=== PATIENT | female | born 2000 | race African-American/Black ===

== ENCOUNTER 2022-08-17 13:45 | Emergency (ER) | payer OTHER ==
[2022-08-17 14:19] LABS: Specific Gravity 1.013 (1.005-1.030)
[2022-08-17 14:23] LABS: Specific Gravity 1.013 (1.005-1.030); Transitional Epithelial <5 /HPF (None Seen); Urine Bacteria <20 /HPF (<20); Urine Bilirubin NEGATIVE (Negative); Urine Blood Trace (Negative); Urine Clarity Extremely Turbid (Clear); Urine Color Colorless (Yellow); Urine Glucose NEGATIVE (Negative); Urine Protein TRACE (Negative); Urine Urobilinogen Normal (Normal); Urine WBC Clump Occasional /HPF (None Seen)
[2022-08-17 14:57] LABS: BUN Blood Urea Nitrogen 9 mg/dL (7-18); Bicarbonate 22 mEq/L (21-32); Glomerular Filtration Rate 106 ml/min (=/>90); Glucose Level 101 mg/dL (74-106); Potassium 3.6 mEq/L (3.5-5.1); Sodium Level 139 mEq/L (136-145)
[2022-08-17 15:01] LABS: Troponin High Sensitivity < 3.0 pg/mL (<58.9)
--- NOTE | 2022-08-17 15:13 | RAD REPORT ---
EXAM DESCRIPTION: RAD - Chest Single View - 08/17/2022 2:22 pm CLINICAL HISTORY: CHEST PAIN Chest pain. COMPARISON: No comparisons FINDINGS: Portable technique limits examination quality. The lungs are grossly clear. The heart is normal in size. No displaced fractures. IMPRESSION: No acute intrathoracic process suspected.
[2022-08-17 15:29] LABS: Absolute Lymphocytes (CBC) 1.9 K/uL (0.7-4.9); Hematocrit 30.1 % (36.0-45.0); Lymphocytes % 20.4 % (15.3-44.8); MCV 62.8 fL (80-100); MPV 8.6 fL (7.6-11.3)
[2022-08-17 15:35] LABS: White Blood Cell Scan OK (OK)
[2022-08-17 15:36] LABS: Blood Morphology Comment NOTED (NOT SEEN); Hypochromasia 2+; Platelet Estimate ADEQ
--- NOTE | 2022-08-17 15:38 | RAD REPORT ---
EXAM DESCRIPTION: US - Extremity Nonvascular Limited - 08/17/2022 2:17 pm CLINICAL HISTORY: swelling, evaluate for abscess, breast;Pain COMPARISON: <Comparisons> TECHNIQUE: Real-time sonographic evaluation of the area of interest was performed. FINDINGS: No soft tissue mass or fluid collection visualized. IMPRESSION: Negative study.
--- NOTE | 2022-08-17 15:44 | ER ---
Nurse's Notes [facility] Name: Howard Rodriguez Age: 22 yrs Sex: Female : 2000 Arrival Date: 08/17/2022 Time: 13:45 Bed 8 Private MD: Diagnosis: UTI/ Urinary tract infection, site not specified;Chest pain, unspecified-right Presentation: 08/17 13:55 Chief complaint: Patient states: Right sided chest pain - worse with movement X 2 ld1 weeks. Urinary frequency 2-3 days. Coronavirus screen: At this time, the client does not indicate any symptoms associated with coronavirus-19. Ebola Screen: No symptoms or risks identified at this time. Initial Sepsis Screen: Does the patient meet any 2 criteria? No. Patient's initial sepsis screen is negative. Does the patient have a suspected source of infection? No. Patient's initial sepsis screen is negative. Risk Assessment: Do you want to hurt yourself or someone else? Patient reports no desire to harm self or others. Onset of symptoms was August 17, 2022. 13:55 Method Of Arrival: Ambulatory ld1 13:55 Acuity: LONNY 3 ld1 Triage Assessment: 13:55 General: Appears in no apparent distress. comfortable, Behavior is cooperative, ld1 anxious, crying. Pain: Complains of pain in chest Pain does not radiate. Pain currently is 7 out of 10 on a pain scale. Quality of pain is described as throbbing. EENT: No signs and/or symptoms were reported regarding the EENT system. Neuro: Level of Consciousness is awake, alert, obeys commands, Oriented to person, place, time, situation. Cardiovascular: Capillary refill < 3 seconds Patient's skin is warm and dry. Rhythm is sinus rhythm. Respiratory: Airway is patent Respiratory effort is even, unlabored. GI: Abdomen is round non-distended. : Reports urinary frequency. Derm: No signs and/or symptoms reported regarding the dermatologic system. Musculoskeletal: No signs and/or symptoms reported regarding the musculoskeletal system. Historical: - Allergies: 13:55 No Known Allergies; ld1 - Home Meds: 13:55 None [Active]; ld1 - PMHx: 13:55 None; ld1 - PSHx: 13:55 DNC; ld1 - Immunization history:: Adult Immunizations up to date, Client reports receiving the 2nd dose of the Covid vaccine. - Social history:: Smoking status: Patient denies any tobacco usage or history of. Patient/guardian denies using alcohol. Screenin:00 [facility] ED Fall Risk Assessment (Adult) History of falling in the last 3 months, ko1 including since admission No falls in past 3 months (0 pts) Confusion or Disorientation No (0 pts) Intoxicated or Sedated No (0 pts) Impaired Gait No (0 pts) Mobility Assist Device Used No (0 pt) Altered Elimination No (0 pt) Score/Fall Risk Level 0 - 2 = Low Risk Oriented to surroundings, Maintained a safe environment, Educated pt \T\ family on fall prevention, incl call for assistance when getting out of bed, Assessed \T\ reinforced patient's understanding of fall precautions, Provided non-skid footwear, Hourly rounding (assess needs \T\ fall precautionary measures) done, Used ambulatory aids as needed (educated on \T\ assisted with), Used gait belt as appropriate. Abuse screen: Denies threats or abuse. Denies injuries from another. Nutritional screening: No deficits noted. Tuberculosis screening: No symptoms or risk factors identified. Assessment: 14:00 Pain: Complains of pain in chest Pain does not radiate. Pain currently is 7 out of 10 ko1 on a pain scale. Quality of pain is described as aching, Pain began gradually. Neuro: No deficits noted. Cardiovascular: Chest pain is located in right anterior. 14:00 Respiratory: No deficits noted. GI: No deficits noted. : Reports burning with ko1 urination, urgency, urinary frequency. EENT: No deficits noted. Derm: No deficits noted. Musculoskeletal: No deficits noted. Vital Signs: 13:55 BP 145 / 86; Pulse 102; Resp 18; Temp 98.5(TE); Pulse Ox 97% on R/A; Weight 58.97 kg; ld1 Height 5 ft. 2 in. ; Pain 7/10; 15:29 BP 134 / 76; Pulse 92; Resp 16; Pulse Ox 99% on R/A; ko1 13:55 Body Mass Index 23.78 (58.97 kg, 157.48 cm) ld1 13:55 Pain Scale: Adult ld1 ED Course: 13:48 Patient arrived in ED. im 13:48 Tiana Cam FNP-C is [facility]. kb 13:48 Tk Oliver MD is Attending Physician. kb 13:55 Arm band placed on right wrist. ld1 13:56 Jam Rivera, RN is Primary Nurse. bp 13:56 Triage completed. ld1 14:00 Patient has correct armband on for positive identification. Placed in gown. Bed in low ko1 position. Call light in reach. Side rails up X 1. Client placed on continuous cardiac and pulse oximetry monitoring. NIBP monitoring applied. monitoring tech on. Door closed. Noise minimized. Lights dimmed. Warm blanket given. 14:00 Patient maintains SpO2 saturation greater than 95% on room air. ko1 14:11 Test, Urine Sent. ko1 14:11 Urinalysis w/ reflexes Sent. ko1 14:19 US Extrmty Nonvasular Limited In Process Unspecified. EDMS 14:20 Inserted saline lock: 22 gauge in right antecubital area, using aseptic technique. ko1 Blood collected. 14:24 XRAY Chest (1 view) In Process Unspecified. EDMS 14:55 No provider procedures requiring assistance completed. ko1 15:46 IV discontinued, intact, bleeding controlled, No redness/swelling at site. Pressure ko1 dressing applied. Administered Medications: No medications were administered Medication: 14:54 VIS not applicable for this client. ko1 Outcome: 15:44 Discharge ordered by . kb 15:57 Discharged to home ambulatory. ko1 15:57 Condition: stable 15:57 Discharge instructions given to patient, Instructed on discharge instructions, follow up and referral plans. medication usage, Demonstrated understanding of instructions, follow-up care, medications. 15:58 Patient left the ED. ko1 Signatures: Dispatcher [employer] EDMS Tiana Cam FNP-C FNP-Jam Banerjee, RN RN Nidia Parekr RN RN ld1 Janina Quigley, RN RN ko1 Carisa Crisostomo
--- NOTE | 2022-08-17 15:44 | EDPHYS ---
Physician Documentation [facility] Name: Howard Rodriguez Age: 22 yrs Sex: Female : 2000 Arrival Date: 08/17/2022 Time: 13:45 Bed 8 Private MD: ED Physician Tk Oliver HPI: 08/17 15:40 This 22 yrs old Female presents to ER via Ambulatory with complaints of Chest Pain, kb Bladder issues. 15:41 The patient presents with urinary symptoms, frequency. Onset: The symptoms/episode kb began/occurred 3 day(s) ago. Modifying factors: The symptoms are alleviated by nothing, the symptoms are aggravated by urinating. Associated signs and symptoms: The patient has no apparent associated signs or symptoms. Severity of symptoms: At their worst the symptoms were moderate, in the emergency department the symptoms are unchanged. The patient has not experienced similar symptoms in the past. The patient has not recently seen a physician. Pt reports urinary frequency for 3-4 days. Also reports right chest pain with movement for about 2 weeks. States she noticed some swelling to right upper chest last night. Pt concerned about breast cancer because it runs in her family. Historical: - Allergies: 13:55 No Known Allergies; ld1 - Home Meds: 13:55 None [Active]; ld1 - PMHx: 13:55 None; ld1 - PSHx: 13:55 DNC; ld1 - Immunization history:: Adult Immunizations up to date, Client reports receiving the 2nd dose of the Covid vaccine. - Social history:: Smoking status: Patient denies any tobacco usage or history of. Patient/guardian denies using alcohol. ROS: 15:40 Constitutional: Negative for fever, chills, and weight loss. kb 15:40 Cardiovascular: Positive for chest pain, with movement, of the anterior aspect of right upper chest. 15:40 : Positive for urinary symptoms, urinary frequency. 15:40 All other systems are negative. Exam: 15:43 Constitutional: This is a well developed, well nourished patient who is awake, alert, kb and in no acute distress. Head/Face: Normocephalic, atraumatic. ENT: Moist Mucous membranes Cardiovascular: Regular rate and rhythm with a normal S1 and S2. No gallops, murmurs, or rubs. No pulse deficits. Respiratory: Respirations even and unlabored. No increased work of breathing. Talking in full sentences Abdomen/GI: Soft, non-tender. No distention Skin: Warm, dry with normal turgor. Normal color. MS/ Extremity: Pulses equal, no cyanosis. Neurovascular intact. Full, normal range of motion. Neuro: Awake and alert, GCS 15, oriented to person, place, time, and situation. Moves all extremities. Normal gait. 15:43 Constitutional: The patient appears anxious. 16:32 ECG was reviewed by the Attending Physician. kb Vital Signs: 13:55 BP 145 / 86; Pulse 102; Resp 18; Temp 98.5(TE); Pulse Ox 97% on R/A; Weight 58.97 kg; ld1 Height 5 ft. 2 in. ; Pain 7/10; 15:29 BP 134 / 76; Pulse 92; Resp 16; Pulse Ox 99% on R/A; ko1 13:55 Body Mass Index 23.78 (58.97 kg, 157.48 cm) ld1 13:55 Pain Scale: Adult ld1 MDM: 13:48 Patient medically screened. kb 15:40 Data reviewed: vital signs, nurses notes. kb 15:43 Differential diagnosis: kidney stone, urinary tract infection, cellulitis, NM, CAD, kb chest wall pain. Counseling: I had a detailed discussion with the patient and/or guardian regarding: the historical points, exam findings, and any diagnostic results supporting the discharge/admit diagnosis, lab results, radiology results, the need for outpatient follow up, a family practitioner, to return to the emergency department if symptoms worsen or persist or if there are any questions or concerns that arise at home. 08/17 14:02 Order name: Basic Metabolic Panel; Complete Time: 15:06 kb 08/17 14:02 Order name: CBC with Diff; Complete Time: 15:39 kb 08/17 14:02 Order name: Troponin HS; Complete Time: 15:06 kb 08/17 14:02 Order name: Test, Urine; Complete Time: 14:26 kb 08/17 14:02 Order name: Urinalysis w/ reflexes; Complete Time: 14:26 kb 08/17 14:26 Order name: Urine Culture EDOK 08/17 15:36 Order name: CBC Smear Scan; Complete Time: 15:39 EDOK 08/17 14:02 Order name: XRAY Chest (1 view); Complete Time: 15:23 kb 08/17 14:02 Order name: US Extrmty Nonvasular Limited; Complete Time: 15:39 kb 08/17 14:02 Order name: EKG; Complete Time: 14:03 kb 08/17 14:02 Order name: Cardiac monitoring; Complete Time: 14:14 kb 08/17 14:02 Order name: EKG - Nurse/Tech; Complete Time: 14:35 kb 08/17 14:02 Order name: IV Saline Lock; Complete Time: 14:35 kb 08/17 14:02 Order name: Labs collected and sent; Complete Time: 14:49 kb 08/17 14:02 Order name: O2 Per Protocol; Complete Time: 14:11 kb 08/17 14:02 Order name: O2 Sat Monitoring; Complete Time: 14:11 kb EC:32 Rate is 68 beats/min. Rhythm is regular. QRS [place] is Normal. AL interval is normal at kb 168 msec. QRS interval is normal at 80 msec. QT interval is normal at 382 msec. Administered Medications: No medications were administered Disposition: 16:15 Co-signature as Attending Physician, Tk Oliver MD I agree with the assessment and kdr plan of care. Disposition Summary: 08/17/22 15:44 Discharge Ordered Location: Home kb Condition: Stable kb Diagnosis - UTI/ Urinary tract infection, site not specified kb - Chest pain, unspecified - right kb Followup: kb - With: Emergency Department - When: As needed - Reason: Worsening of condition Followup: kb - With: Private Physician - When: 2 - 3 days - Reason: Recheck today's complaints, Continuance of care, Re-evaluation by your physician Discharge Instructions: - Discharge Summary Sheet kb - Chest Wall Pain, [id number] kb - Urinary Tract Infection, Adult, [id number] kb Forms: - Medication Reconciliation Form kb - Thank You Letter kb - Antibiotic Education kb - Prescription Opioid Use kb - [email or web address] kb Prescriptions: - Macrobid 100 mg Oral Capsule - take 1 capsule by ORAL route every 12 hours for 10 days; 20 capsule; Refills: kb 0, Product Selection Permitted Signatures: Dispatcher [employer] EDTiana Hatch, ALIREZA-C ALIREZA-Tk Benton MD MD kdr Nidia Moore, RN RN ld1
[2022-08-17 16:39] VITALS: TEMP 98.5
[2022-08-17 16:40] VITALS: BP 134/76; O2SAT 99
--- NOTE | 2022-08-18 12:36 | EKG ---
Test Date: 2022-08-17 Test Time: 14:26:31 Duplicating Machine Mechanic: JAZMÍN MEASUREMENT RESULTS: Intervals: Rate: 68 AL: 168 QRSD: 80 QT: 360 QTc: 382 Carbon: P: 41 AL: 168 QRS: 53 T: 43 INTERPRETIVE STATEMENTS: Normal sinus rhythm Normal ECG No previous ECG available for comparison Electronically Signed On 08-18-22 12:34:49 CDT by Ayo Tavarez
== END 2022-08-17 15:58 | disposition home or self-care (01) ==
LOC: ER 13:45
DX: N39.0 Urinary tract infection, site not specified (principal); R07.9 Chest pain, unspecified
CPT/HCPCS: 36415; 71045; 76882; 80048; 81001; 81025; 84484; 85025; 87086; 87088; 93005; 99285